=== PATIENT | female | born 1955 | race Caucasian/White ===

== ENCOUNTER 2019-02-03 20:47 | Emergency (ER) | payer BC ==
[2019-02-03 21:07] VITALS: BP 120/75
[2019-02-03] MEDS ORDERED: Lidocaine 2% Jelly 30 ML Tube MUCMEM STA (21:10)
[2019-02-03] MEDS ORDERED: Ketorolac 60 MG/2 ML SDV IM ONE (21:10)
[2019-02-03] MEDS ORDERED: Diphtheria,Pertussis(Acell),Tetanus Vaccine 0.5 ML SDV IM ONE (21:11)
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
[2019-02-03] MEDS ORDERED: Lidocaine 2% Viscous Solution 15 ML Cup ONE (21:24)
[2019-02-03] MEDS ORDERED: Lidocaine 2% Viscous Solution 15 ML Cup PO ONE (21:26)
[2019-02-03] MEDS ORDERED: Silver Sulfadiazine 1% Crm 50 GM Tube TOP ONE (21:45)
== END 2019-02-03 22:15 | disposition home or self-care (01) ==
LOC: JP.ED 20:47
DX: T24.221A Burn of second degree of right knee, initial encounter (principal); X08.8XXA Exposure to other specified smoke, fire and flames, initial encounter; Z23 Encounter for immunization; Z91.030 Bee allergy status; Z79.899 Other long term (current) drug therapy
CPT/HCPCS: 90471; 90715; 96372; 99283; A9270; J1885

== ENCOUNTER 2020-02-01 17:56 | Emergency (ER) | payer BC, OTHER ==
[2020-02-01 21:15] VITALS: BP 141/85; PULSE 101
== END 2020-02-01 19:15 | disposition home or self-care (01) ==
LOC: JP.ED 17:56
DX: K08.89 Other specified disorders of teeth and supporting structures (principal)
CPT/HCPCS: 99282

== ENCOUNTER 2021-03-16 06:29 | Day surgery (SDC) | payer OTHER ==
[2021-03-16] MEDS ORDERED: Propofol 200 MG/20 ML SDV ONE ×2 (07:11→08:31)
[2021-03-16] MEDS ORDERED: fentaNYL 100 MCG/2 ML SDV ONE (07:11)
[2021-03-16] MEDS ORDERED: Midazolam 1 MG/ML 2 ML SDV ONE (07:11)
[2021-03-16] MEDS ORDERED: Sodium Chloride 0.9% 1,000 ML IV SCH (07:15)
[2021-03-16 09:40] VITALS: BP 122/84; PULSE 67
--- NOTE | 2021-03-16 11:26 | OR ---
DATE OF PROCEDURE: 03/16/2021 SURGEON: Jackson Moore MD PROCEDURE: Colonoscopy. FINDINGS: Descending colon polyp, approximately 5 mm, completely removed using cold biopsy forceps. COMPLICATIONS: None. 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 PREOPERATIVE DIAGNOSIS: Positive Cologuard. POSTOPERATIVE DIAGNOSIS: Positive Cologuard. RISKS: Risks, benefits, alternatives, and limitations including, but not limited to, infection, bleeding, false positives and false negatives were explained to the patient and she wished to proceed. PROCEDURE IN DETAIL: The patient was placed in left lateral decubitus position. Digital rectal exam was performed without abnormality. Scope was introduced and advanced atraumatically to the ileocecal valve. A photo was taken. The scope was brought back to the ascending, transverse, descending colon, and retroflexed. No evidence of old or new blood. No masses. Aforementioned polyp was identified and completely removed. No diverticulosis. No abnormalities on retroflexion. Prep was marginal, approximately 90% luminal surface could be seen with some small liquid stool remaining. Greater than 11 minute was spent removing the scope. The patient tolerated the procedure well. Jackson Moore MD /[id number]
== END 2021-03-16 09:54 | disposition home or self-care (01) ==
LOC: JP.SDS 06:29
PROVIDERS: ATTEND Surgery
DX: D12.4 Benign neoplasm of descending colon (principal); K21.9 Gastro-esophageal reflux disease without esophagitis
CPT/HCPCS: 45380; J2250; J2704; J3010; J7030; 88305